=== PATIENT | female | born 1980 | race Two or more races ===

== ENCOUNTER 2017-03-24 11:19 | Outpatient (CLI) | payer OTHER | END 2017-03-24 11:20 | disposition home or self-care (01) | LOC: MAMO-SONO 11:19 | DX: Z12.31 Encounter for screening mammogram for malignant neoplasm of breast (principal); D25.9 Leiomyoma of uterus, unspecified ==

== ENCOUNTER 2024-05-20 10:45 | Inpatient (IN) | payer OTHER ==
[~2024-05-20] VITALS: Ht 149.9 cm; Wt 42.6 kg
[2024-05-27] MEDS ORDERED: CEFAZOLIN SODIUM 1,000 MG VIAL ONE (08:35)
[2024-05-27] MEDS ORDERED: POVIDONE-IODINE 118 ML BOTT TOP ONE (08:36)
[2024-05-27] MEDS ORDERED: SUGAMMADEX SODIUM 200 MG/2 ML VIAL IV ONE (10:06)
[2024-05-27] MEDS ORDERED: RINGERS SOLUTION,LACTATED 1,000 ML IV SCH (10:15)
[2024-05-27] MEDS ORDERED: MEPERIDINE HCL/PF 50 MG/ML VIAL IM PRN (10:15)
[2024-05-27] MEDS ORDERED: PROMETHAZINE HCL 50 MG/ML AMPUL IM PRN (10:15)
[2024-05-27] MEDS ORDERED: MORPHINE SULFATE 4 MG/ML VIAL IV ONE ×2 (11:20→11:50)
[2024-05-27] MEDS ORDERED: MORPHINE SULFATE 4 MG/ML CARTRIDGE IV PRN (13:00)
[2024-05-27 13:01] VITALS: BP 116/76
[2024-05-27] MEDS ORDERED: CEFAZOLIN SODIUM 1,000 MG VIAL IV SCH (14:00)
[2024-05-27 17:29] VITALS: BP 107/71
[2024-05-27 23:38] VITALS: BP 115/70
[2024-05-28 02:12] LABS: HEMATOCRIT 33.2 % (36.0-45.00); HEMOGLOBIN 10.7 g/dL (12.0-15.00); MEAN CELL VOLUME 80.1 fL (80.00-100.00); MEAN CORPUSCULAR HEMOGLOBIN 25.8 pg (27.00-32.0); MEAN CORPUSCULAR HGB CONC 32.2 g/dl (32.0-36.0); PLATELET COUNT 210 K/uL (150-450); RED BLOOD COUNT 4.15 M/uL (4.00-6.00); RED CELL DISTRIBUTION WIDTH 15.5 % (11.5-14.5)
[2024-05-28 05:00] VITALS: BP 113/73
[2024-05-28 08:00] VITALS: BP 106/71
[2024-05-28] MEDS ORDERED: IBUprofen 800 MG TABLET PO PRN (08:00)
[2024-05-28] MEDS ORDERED: DOCUSATE SODIUM 100MG CAP PO SCH (09:00)
[2024-05-28] MEDS ORDERED: SIMETHICONE 125 MG CAPSULE PO SCH (09:00)
[2024-05-28 16:33] VITALS: BP 107/61
[2024-05-29 02:09] VITALS: BP 107/70
[2024-05-29 09:00] VITALS: BP 112/71
[2024-05-29 17:00] VITALS: BP 119/79
[2024-05-29 23:40] VITALS: BP 144/83
[2024-05-30 08:18] VITALS: BP 127/69
[2024-05-30] MEDS ORDERED: IBUPROFEN800 MG PO (10:02)
[2024-05-31] MEDS ORDERED: SUGAMMADEX SODIUM 200 MG/2 ML VIAL IV ONE (14:45)
== END 2024-05-30 10:45 | disposition home or self-care (01) | DRG 743 ==
LOC: OB/GYN 05-27 06:18 → O/R 05-27 06:18 → OB/GYN 05-27 09:30
PROVIDERS: ADMIT Specialist; ATTEND Specialist
PROC: 0UT90ZZ Resection of Uterus, Open Approach (ICD-10-PCS; principal; 2024-05-27 09:30)
DX: D25.1 Intramural leiomyoma of uterus (principal); N84.0 Polyp of corpus uteri